=== PATIENT | female | born 2000 | race Native Hawaiian/Other Pacific Islander ===

== ENCOUNTER 2021-01-26 22:08 | Emergency (ER) | payer BC, OTHER ==
[~2021-01-26] VITALS: Ht 162.6 cm; Wt 106.1 kg
[2021-01-26 22:53] LABS: PLATELET COUNT 350 K/uL (152-353)
[2021-01-26 23:02] LABS: POTASSIUM 4.1 mmol/L (3.6-5.2); SODIUM 141 mmol/L (136-145)
[2021-01-26 23:07] LABS: PARTIAL THROMBOPLASTIN TIME 23.7 SECONDS (24.5-33.6)
[2021-01-27 01:00] VITALS: BP 126/79; TEMP 98.4
== END 2021-01-27 01:00 | disposition home or self-care (01) ==
LOC: ED 22:08
PROVIDERS: Hospitalist
DX: R07.89 Other chest pain (principal); G62.89 Other specified polyneuropathies; J06.9 Acute upper respiratory infection, unspecified
CPT/HCPCS: 36415; 80053; 82550; 83880; 84484; 85027; 85379; 85610; 85730; 93005; 96360; 96365; 96375; 99284; J0696; J2930